=== PATIENT | female | born 1995 | race Two or more races ===

== ENCOUNTER 2019-06-25 17:06 | Emergency (ER) | payer OTHER ==
[~2019-06-25] VITALS: Ht 162.6 cm; Wt 68.0 kg
[2019-06-25 17:18] VITALS: BP 119/72
== END 2019-06-25 17:36 | disposition home or self-care (01) ==
LOC: ER 17:07
DX: S91.011D Laceration without foreign body, right ankle, subsequent encounter (principal); W18.39XD Other fall on same level, subsequent encounter